=== PATIENT | female | born 1935 | race Caucasian/White ===

== ENCOUNTER 2018-08-01 01:30 | Outpatient (CLI) | payer MEDICARE, BC, SELFPAY ==
[2018-08-01 09:23] LABS: Hemoglobin A1C 8.1 % (4.5-6.2)
[2018-08-01 09:32] LABS: ALT 15 U/L (12-78); AST 21 U/L (15-37); Albumin 3.1 g/dL (3.4-5.0); Alkaline Phosphatase 101 U/L (46-116); BUN 19 mg/dL (7-18); Bilirubin, Total 0.3 mg/dL (0.2-1.0); CREATININE 0.89 mg/dL (0.55-1.02); Calcium 10.7 mg/dL (8.5-10.1); Chloride 103 mmol/L (98-107); Cholesterol 198 mg/dL (50-200); Glucose 198 mg/dL (70-100); HDL Cholesterol 63 mg/dL (40-60); LDL CHOLESTEROL 106 mg/dL (<100); Potassium 4.1 mmol/L (3.5-5.1); Sodium 138 mmol/L (136-145); Total Protein 6.5 g/dL (6.4-8.2); Triglyceride 164 mg/dL (30-150)
== END 2018-08-01 01:50 ==
PROVIDERS: PCP Nurse Practitioner Family; Visit Provider Nurse Practitioner Family
DX: E11.9 Type 2 diabetes mellitus without complications (principal); I10 Essential (primary) hypertension; E78.5 Hyperlipidemia, unspecified
CPT/HCPCS: 36415; 80053; 80061; 83721; 83036

== ENCOUNTER 2019-01-30 01:39 | Outpatient (CLI) | payer MEDICARE, BC, SELFPAY ==
[2019-01-30 10:14] LABS: Hemoglobin A1C 8.2 % (4.5-6.2)
[2019-01-30 10:51] LABS: Anion Gap 7.3 mmol/L (3-11); BUN 17 mg/dL (7-18); CO2 28.7 mmol/L (21.0-32.0); CREATININE 0.77 mg/dL (0.55-1.02); Chloride 105 mmol/L (98-107); Glucose 173 mg/dL (70-100); Potassium 4.6 mmol/L (3.5-5.1); Sodium 141 mmol/L (136-145)
== END 2019-01-30 01:59 ==
PROVIDERS: PCP Nurse Practitioner Family; Visit Provider Nurse Practitioner Family
DX: E11.9 Type 2 diabetes mellitus without complications (principal)
CPT/HCPCS: 36415; 80048; 83036

== ENCOUNTER 2019-07-28 01:48 | Outpatient (CLI) | payer MEDICARE, BC, SELFPAY ==
[2019-07-28 10:40] LABS: ALT 19 U/L (14-59); AST 19 U/L (15-37); Albumin 3.3 g/dL (3.4-5.0); Alkaline Phosphatase 82 U/L (46-116); Anion Gap 8.3 mmol/L (3-11); BUN 20 mg/dL (7-18); Bilirubin, Total 0.4 mg/dL (0.2-1.0); CO2 29.7 mmol/L (21.0-32.0); CREATININE 0.91 mg/dL (0.55-1.02); Calcium 10.5 mg/dL (8.5-10.1); Calculated LDL 104 mg/dL; Chloride 103 mmol/L (98-107); Cholesterol 197 mg/dL (<200); Estimated GFR 59.18 (mL/min/1.73m2); Glucose 176 mg/dL (74-106); HDL Cholesterol 69 mg/dL (40-60); Sodium 141 mmol/L (136-145); Total Protein 6.6 g/dL (6.4-8.2); Triglyceride 124 mg/dL (<150)
== END 2019-07-28 02:08 ==
PROVIDERS: PCP Nurse Practitioner Family; Visit Provider Nurse Practitioner Family
DX: E11.9 Type 2 diabetes mellitus without complications (principal); I10 Essential (primary) hypertension; E78.5 Hyperlipidemia, unspecified
CPT/HCPCS: 36415; 80053; 80061; 83036

== ENCOUNTER 2020-01-26 01:12 | Outpatient (CLI) | payer MEDICARE, BC, SELFPAY ==
[2020-01-26 09:03] LABS: Hemoglobin A1C 7.3 % (3.8-5.6)
[2020-01-26 09:38] LABS: Anion Gap 9.8 mmol/L (3-11); BUN 15 mg/dL (7-18); CO2 26.2 mmol/L (21.0-32.0); CREATININE 0.85 mg/dL (0.55-1.02); Calcium 10.4 mg/dL (8.5-10.1); Chloride 104 mmol/L (98-107); Glucose 178 mg/dL (74-106); Potassium 4.3 mmol/L (3.5-5.1); Sodium 140 mmol/L (136-145)
== END 2020-01-26 01:32 ==
PROVIDERS: PCP Nurse Practitioner Family; Visit Provider Nurse Practitioner Family
DX: E11.9 Type 2 diabetes mellitus without complications (principal); I10 Essential (primary) hypertension
CPT/HCPCS: 36415; 80048; 83036

== ENCOUNTER 2020-07-30 03:18 | Outpatient (CLI) | payer MEDICARE, BC, SELFPAY ==
[2020-07-30 09:43] LABS: ALT 18 U/L (14-59); AST 19 U/L (15-37); Albumin 3.4 g/dL (3.4-5.0); Alkaline Phosphatase 79 U/L (46-116); Anion Gap 6.4 mmol/L (3-11); BUN 18 mg/dL (7-18); Bilirubin, Total 0.3 mg/dL (0.2-1.0); CO2 28.6 mmol/L (21.0-32.0); Calcium 10.6 mg/dL (8.5-10.1); Calculated LDL 93 mg/dL (<100); Chloride 104 mmol/L (98-107); Cholesterol 195 mg/dL (<200); Glucose 171 mg/dL (74-106); HDL Cholesterol 64 mg/dL (40-60); Potassium 4.4 mmol/L (3.5-5.1); Sodium 139 mmol/L (136-145); Total Protein 6.5 g/dL (6.4-8.2); Triglyceride 190 mg/dL (<150)
[2020-08-01 17:35] LABS: TSH (W/Ref FT4) 2.54 uIU/mL (0.36-3.74)
[2020-08-01 18:10] LABS: Vitamin D 25 Total 50.2 ng/ml (30-100)
== END 2020-07-30 03:38 ==
PROVIDERS: PCP Nurse Practitioner Family; Visit Provider Nurse Practitioner Family
DX: E78.5 Hyperlipidemia, unspecified (principal); I10 Essential (primary) hypertension
CPT/HCPCS: 36415; 80053; 80061; 82306; 84443

== ENCOUNTER 2021-01-24 01:46 | Outpatient (CLI) | payer MEDICARE, BC, SELFPAY ==
[2021-01-28 08:54] LABS: Parathyroid Hormone,Intact 121 pg/mL (19-88)
== END 2021-01-24 01:47 | disposition home or self-care (01) ==
PROVIDERS: PCP Nurse Practitioner Family; Visit Provider Nurse Practitioner Family
DX: R79.89 Other specified abnormal findings of blood chemistry (principal); E83.52 Hypercalcemia; E21.3 Hyperparathyroidism, unspecified
CPT/HCPCS: 36415; 80053; 80061; 83036; 83970; 84439; 84443

== ENCOUNTER 2021-01-24 15:23 | Outpatient (REF) | payer MEDICARE, BC, SELFPAY ==
[2021-01-24 14:47] LABS: Hemoglobin A1C 8.7 % (<5.7)
[2021-01-24 15:10] LABS: ALT 24 U/L (14-59); AST 25 U/L (15-37); Albumin 3.4 g/dL (3.4-5.0); Alkaline Phosphatase 77 U/L (46-116); Anion Gap 9.8 mmol/L (3-11); BUN 20 mg/dL (7-18); Bilirubin, Total 0.4 mg/dL (0.2-1.0); CO2 27.2 mmol/L (21.0-32.0); Calcium 10.9 mg/dL (8.5-10.1); Calculated LDL 122 mg/dL (<100); Chloride 102 mmol/L (98-107); Cholesterol 228 mg/dL (<200); Estimated GFR 52.95 (mL/min/1.73m2); Glucose 217 mg/dL (74-106); HDL Cholesterol 73 mg/dL (40-60); Potassium 4.5 mmol/L (3.5-5.1); Sodium 139 mmol/L (136-145); Total Protein 6.7 g/dL (6.4-8.2); Triglyceride 166 mg/dL (<150)
[2021-01-24 15:27] LABS: FREE T4 0.95 ng/dL (0.76-1.46)
== END 2021-01-24 15:24 | disposition home or self-care (01) ==
LOC: NCHCN 15:23
PROVIDERS: PCP Nurse Practitioner Family; Visit Provider Nurse Practitioner Family
DX: E11.9 Type 2 diabetes mellitus without complications (principal); R89.9 Unspecified abnormal finding in specimens from other organs, systems and tissues; I10 Essential (primary) hypertension
CPT/HCPCS: 80053; 80061; 83036; 84439; 84443

== ENCOUNTER 2021-01-30 02:15 | Outpatient (CLI) | payer MEDICARE, BC, SELFPAY ==
--- NOTE | 2021-01-30 | DI.RAD_ITS ---
Exam(s) XR THORACIC SPINE COMPLETE EXAM: XR THORACIC SPINE COMPLETE CLINICAL HISTORY: PAIN. TECHNIQUE: 2D digital imaging was performed. COMPARISON: CR XR CERVICAL SPINE COMP 4-5V from 01/30/2021 CR XR CERVICAL SPINE COMP 4-5V from 01/30/2021 FINDINGS: BONES: There is no fracture or destructive lesion. The vertebral bodies and posterior elements are un remarkable. Bones appear osteoporotic. DISKS:Anterior disc space narrowing causing accentuation of the thoracic kyphosis. There is a mild d extroscoliosis in the thoracic region and levorotoscoliosis in the lumbar region. SOFT TISSUE: Mild fibrotic changes and apical scarring. Aortic calcification. IMPRESSION: Degenerative disc changes and scoliosis. No evidence of fracture. DATA REPOSITORY: RADIATION DOSE DELIVERED:
--- NOTE | 2021-01-30 | DI.RAD_ITS ---
Exam(s) XR CERVICAL SPINE COMP 4-5V EXAM: XR CERVICAL SPINE COMP 4-5V CLINICAL HISTORY: WORSENING NECK PAIN,H/O OSTEOPOROSIS,? FX. TECHNIQUE: 2D digital imaging was performed. COMPARISON: No exams were available for comparison FINDINGS: BONES: No fracture or destructive lesion. Vertebral bodies are unremarkable. Prominent facet joint degenerative changes greater in the upper through mid cervical levels. Left-sided neural foraminal e ncroachment at C3-4. DISKS: Mild disc space narrowing at C3-4 and C4-5. Moderate disc space narrowing at C5-6. ALIGNMENT: Straightening of the normal cervical lordosis. SOFT TISSUE: The lung apices show scarring.. Calcification at the aortic arch and region of the left common carotid bulb. IMPRESSION: Degenerative changes of the discs and facets. Left neural foraminal encroachment at C3-4. DATA REPOSITORY: RADIATION DOSE DELIVERED:
== END 2021-01-30 02:35 ==
PROVIDERS: PCP Nurse Practitioner Family; Visit Provider Nurse Practitioner Family
DX: M47.813 Spondylosis without myelopathy or radiculopathy, cervicothoracic region (principal); M41.84 Other forms of scoliosis, thoracic region
CPT/HCPCS: 72050; 72072

== ENCOUNTER 2021-04-15 01:43 | Outpatient (CLI) | payer MEDICARE, BC, SELFPAY ==
[2021-04-17 11:26] LABS: Parathyroid Hormone,Intact 112 pg/mL (19-88)
== END 2021-04-15 01:44 | disposition home or self-care (01) ==
LOC: LBO 01:43
PROVIDERS: PCP Nurse Practitioner Family; Visit Provider Nurse Practitioner Family
DX: R89.9 Unspecified abnormal finding in specimens from other organs, systems and tissues (principal); E83.52 Hypercalcemia; R79.89 Other specified abnormal findings of blood chemistry
CPT/HCPCS: 36415; 83970

== ENCOUNTER 2021-04-23 09:50 | Outpatient (REF) | payer MEDICARE, BC, SELFPAY ==
[2021-04-23 20:24] LABS: Hemoglobin A1C 7.8 % (<5.7)
[2021-04-23 20:33] LABS: Calcium 10.2 mg/dL (8.5-10.1); Calculated LDL 94 mg/dL (<100); Cholesterol 188 mg/dL (<200); HDL Cholesterol 75 mg/dL (40-60); Triglyceride 95 mg/dL (<150)
== END 2021-04-23 09:51 | disposition home or self-care (01) ==
LOC: NCHCN 09:50
PROVIDERS: PCP Nurse Practitioner Family; Visit Provider Nurse Practitioner Family
DX: E78.5 Hyperlipidemia, unspecified (principal); E11.9 Type 2 diabetes mellitus without complications; R89.9 Unspecified abnormal finding in specimens from other organs, systems and tissues
CPT/HCPCS: 80061; 82310; 83036

== ENCOUNTER 2021-05-28 03:17 | Outpatient (CLI) | payer MEDICARE, BC, SELFPAY ==
[2021-05-28 12:00] LABS: Anion Gap 5.3 mmol/L (3-11); BUN 20 mg/dL (7-18); CO2 31.7 mmol/L (21.0-32.0); CREATININE 0.9 mg/dL (0.55-1.02); Calcium 10.9 mg/dL (8.5-10.1); Chloride 104 mmol/L (98-107); Glucose 181 mg/dL (74-106); Potassium 4.2 mmol/L (3.5-5.1); Sodium 141 mmol/L (136-145)
[2021-05-29 01:41] LABS: Vitamin D 25 Total 46.8 ng/mL (30-100)
== END 2021-05-28 03:18 | disposition home or self-care (01) ==
LOC: LBO 03:17
PROVIDERS: PCP Nurse Practitioner Family; Visit Provider Nurse Practitioner Family
DX: I10 Essential (primary) hypertension (principal); R79.89 Other specified abnormal findings of blood chemistry; E83.52 Hypercalcemia
CPT/HCPCS: 36415; 80048; 82306

== ENCOUNTER 2021-07-11 02:17 | Outpatient (CLI) | payer MEDICARE, BC, SELFPAY ==
--- NOTE | 2021-07-11 10:35 | DI.DEXA_ITS ---
Exam(s) XR DEXA BONE DENSITY W/WO BENY EXAM: XR DEXA BONE DENSITY W/WO BENY CLINICAL HISTORY: OSTEOPOROSIS, M81.0, ELEVATED PARATHYROID HORMONE, R79.89, HYPERCALCEMIA, TECHNIQUE: COMPARISON: Comparison examination is 03/26/2011. FINDINGS: Lateral Spine Image: Unremarkable. No compression deformities identified. Left hip: Total T-Score: -2.7. This compares to -1.6 on the prior examination. Total Z-Score: -0.4. T- and Z-scores: Findings are consistent with osteoporosis. Lumbar Spine: Total T-Score: -3.5. This compares to -3.3 on the prior examination. Total Z-Score: -0.6. T- and Z-scores: Findings are consistent with osteoporosis. IMPRESSION: Osteoporosis in the lumbar spine and left hip.
== END 2021-07-11 02:37 ==
PROVIDERS: PCP Nurse Practitioner Family; Visit Provider Nurse Practitioner Family
DX: M81.0 Age-related osteoporosis without current pathological fracture (principal); R94.6 Abnormal results of thyroid function studies; E83.52 Hypercalcemia
CPT/HCPCS: 77080

== ENCOUNTER 2021-11-03 02:40 | Outpatient (CLI) | payer MEDICARE, BC, SELFPAY ==
[2021-11-03 09:07] LABS: Hemoglobin A1C 7.6 % (<5.7)
[2021-11-03 09:47] LABS: ALT 18 U/L (14-59); AST 23 U/L (15-37); Albumin 1.6 g/dL (3.4-5.0); Alkaline Phosphatase 88 U/L (46-116); Anion Gap 8.2 mmol/L (3-11); BUN 17 mg/dL (7-18); Bilirubin, Total 0.4 mg/dL (0.2-1.0); CO2 30.8 mmol/L (21.0-32.0); CREATININE 0.8 mg/dL (0.55-1.02); Calcium 10.2 mg/dL (8.5-10.1); Calculated LDL 104 mg/dL (<100); Chloride 102 mmol/L (98-107); Cholesterol 211 mg/dL (<200); Glucose 176 mg/dL (74-106); HDL Cholesterol 82 mg/dL (40-60); Potassium 4.1 mmol/L (3.5-5.1); Sodium 141 mmol/L (136-145); Total Protein 6.7 g/dL (6.4-8.2); Triglyceride 126 mg/dL (<150)
[2021-11-03 10:07] LABS: Vitamin D 25 Total 55.1 ng/mL (30-100)
[2021-11-04 10:18] LABS: Parathyroid Hormone,Intact 118 pg/mL (19-88)
== END 2021-11-03 02:41 | disposition home or self-care (01) ==
LOC: LBO 02:40
PROVIDERS: PCP Nurse Practitioner Family; Visit Provider Nurse Practitioner Family
DX: I10 Essential (primary) hypertension (principal); E11.9 Type 2 diabetes mellitus without complications; E78.5 Hyperlipidemia, unspecified; R79.89 Other specified abnormal findings of blood chemistry; E83.52 Hypercalcemia
CPT/HCPCS: 36415; 80053; 80061; 82306; 83036; 83970

== ENCOUNTER 2022-04-30 02:22 | Outpatient (CLI) | payer MEDICARE, BC, SELFPAY ==
[2022-04-30 08:44] LABS: Hemoglobin A1C 8.4 % (<5.7)
[2022-04-30 08:48] LABS: ALT 16 U/L (14-59); AST 19 U/L (15-37); Albumin 3.3 g/dL (3.4-5.0); Alkaline Phosphatase 79 U/L (46-116); Anion Gap 6.6 mmol/L (3-11); BUN 20 mg/dL (7-18); Bilirubin, Total 0.3 mg/dL (0.2-1.0); CO2 29.4 mmol/L (21.0-32.0); CREATININE 0.9 mg/dL (0.55-1.02); Calcium 10.6 mg/dL (8.5-10.1); Calculated LDL 84 mg/dL (<100); Chloride 103 mmol/L (98-107); Cholesterol 191 mg/dL (<200); Estimated GFR 63.04 (mL/min/1.73m2); Glucose 165 mg/dL (74-106); HDL Cholesterol 71 mg/dL (40-60); Sodium 139 mmol/L (136-145); Triglyceride 180 mg/dL (<150)
[2022-05-01 09:56] LABS: Parathyroid Hormone,Intact 93 pg/mL (19-88)
== END 2022-04-30 02:23 | disposition home or self-care (01) ==
LOC: LBO 02:23
PROVIDERS: PCP Nurse Practitioner Family; Visit Provider Nurse Practitioner Family
DX: R79.89 Other specified abnormal findings of blood chemistry (principal); E11.9 Type 2 diabetes mellitus without complications; I10 Essential (primary) hypertension; E78.5 Hyperlipidemia, unspecified
CPT/HCPCS: 36415; 80053; 80061; 83036; 83970

== ENCOUNTER 2022-06-10 16:13 | Emergency (ER) | payer MEDICARE, BC, SELFPAY ==
[2022-06-10] VITALS (26 sets, daily range): BP systolic 98–186; BP diastolic 62–103; PULSE 81–114; RESP 14–25; TEMP 36.6; O2SAT 94–100
--- NOTE | 2022-06-10 16:15 | RT.EKG_ITS ---
APPROVED REPORT Exam: Resting ECG Reason for Exam: chest pain Patient Location: E HR:102 bpm ECG Measurements Heart Rate 102 AXIS SC 174 P 63 QRSd 78 QRS 20 QT 338 T 30 QTc 441 Conclusion Sinus tachycardia...rate> 99 Probable left atrial enlargement...P >50mS, <-0.10mV V1
--- NOTE | 2022-06-10 16:45 | DI.RAD_ITS ---
Exam(s) XR SOFT TISSUE NECK EXAM: XR SOFT TISSUE NECK CLINICAL HISTORY: Difficulty swallowing TECHNIQUE: COMPARISON: CR XR CERVICAL SPINE COMP 4-5V from 01/30/2021 FINDINGS: Two views were obtained. No retro pharyngeal soft tissue abnormality. Tracheal laryngeal contours a ppear unremarkable as visualized. IMPRESSION: Negative soft tissue neck . RADIATION DOSE DELIVERED: Total DLP
--- NOTE | 2022-06-10 16:45 | DI.RAD_ITS ---
Exam(s) XR CHEST 2V PA LATERAL EXAM: XR CHEST 2V PA LATERAL CLINICAL HISTORY: Difficulty swallowing TECHNIQUE: COMPARISON: No exams were available for comparison FINDINGS: The heart is not enlarged. There is retrocardiac hiatus hernia. The lungs are predominantly clear w ith some changes of scarring and presumed COPD. No pleural effusion seen. No mediastinal contour ab normality. IMPRESSION: No evidence of acute process. RADIATION DOSE DELIVERED: Total DLP
--- NOTE | 2022-06-10 16:55 | ED.GENADUL_ITS ---
Discharge Plan Disposition Patient Disposition: Home Condition: Improving Discharge Details Clinical Impression: Difficulty swallowing Primary Care Provider: Ruth Fay ED Provider: Aldo Moran Home Meds and New Rx's Prescriptions: Continued lisinopril 20 MG tablet 30 mg PO DAILY glipizide [Glucotrol XL] 5 MG tablet extended release 24hr 5 mg PO BID raloxifene [Evista] 60 MG tablet 60 mg PO DAILY zinc 50 MG tablet 50 mg PO DAILY multivitamin 1 EACH capsule 1 ea PO DAILY metformin [Glucophage XR] 500 MG tablet extended release 24 hr 500 mg PO BID hydrochlorothiazide 12.5 MG tablet 12.5 mg PO DAILY flaxseed 1,000 MG capsule 1,300 mg PO BID calcium carbonate-vitamin D3 500 mg-3.125 mcg (125 unit) Tablet 1 tab PO DAILY omega-3 fatty acids Capsule 1 cap PO DAILY Discharge Instructions Additional Instructions: At this time you have chosen to decline any further medications, labs, or CT imaging. It is reassuring that your swallowing has improved but if you have any further difficulty swallowing, difficulty breathing, or change in your condition you should immediately return to the emergency department. Otherwise please follow-up with your primary care provider for further reassessment and testing/treatment as needed. Referrals: Ruth Fay [Primary Care Provider] - 1 week Discharge Data Discharge Date/Time-TO BE ENTERED AT DEPARTURE: 06/10/22 19:20 Medical Decision Making Patient presenting to the emergency department for chief complaint of heartburn/difficulty swallowing. Patient states that she has these episodes multiple times a year and this morning while having her breakfast she started having some tightness in her throat with heartburn a type feelings. She has had difficulty time swallowing throughout the course of the day finally coming into the emergency department. Patient denies any chest pain, epigastric pain, difficulty breathing swallowing or other symptoms. Physical exam is unremarkable for any acute findings, patient is phonating well, she is spitting up her saliva but shows no signs of foreign body obstruction. We will plan on checking labs and performing EKG just for atypical TX given that patient was stating some heartburn but also consider soft tissue mass or obstruction of esophagus given that airway is fully intact. Will give Maalox with lidocaine to see if this helps. Please see physician interpretation for full interpretation of EKG that shows sinus rhythm with noted tachycardia otherwise no findings to suggest acute ischemic event Reviewed labs and CBC is unremarkable, negative troponin, CMP shows slightly elevated anion gap, glucose is 168, calcium 10.7. Although the labs are unremarkable. Patient does state history of parathyroidism and that her calcium numbers have been monitored by her primary care provider. Patient refused the lidocaine but was able to swallow the Maalox but still having some difficulty sw allowing but again still phonating and breathing well. Will review x-ray imaging of chest and soft tissue neck to see if there are any acute findings. We will continue to monitor Review of x-ray imaging shows no acute findings. Reassessed patient and patient continuing to have difficulty but denying pain or discomfort. Will order CT imaging and consider benzo to see if this will help. Patient refused further medication and did not take initial dose of lidocaine. She did drink some water which she stated improved her symptoms. She states she has no longer having any difficulty with swallowing and is refusing all other treatment and imaging. Did discuss with patient concern for multiple episodes of this occurrence and difficulty managing secretions. She stated that given that this is happened in the past and had now full resolution today that she feels comfortable going home and states understanding that if she does have a potential finding that this could delay further treatment or referral to specialist if needed. Patient is alert and oriented x4 and competent to make her own healthcare decisions. Will discharge patient with recommendation to follow-up with primary care provider for further reassessment of labs and imaging as needed such as potential swallow study. After discussion of diagnosis and plan of care patient has no further needs, questions, or concerns and states clear understanding to return to the emergency department for any worsening symptoms. This documentation was generated using [email or web address] dictation system, please disregard any oddities of phrase or misspellings. Sign Out No HPI General Mode of arrival: ambulatory . Date/Time Provider Initiated Documentation: 06/10/22 16:15 . Limitations to Documentation: no limitations . Information obtained by: patient and RN notes reviewed . History of Present Illness 86 year old F presents to the emergency department with the chief complaint of Heartburn and difficulty swallowing, described as moderate and similar to prior episodes, Quality is described as other (Denies pain or discomfort), Patient started experiencing this hour(s) (8) and it has been constant. No relieving factors improve symptom(s), Eating worsens symptoms . Patient notes no other symptoms.. Patient did receive the following treatments prior to arrival, other (Zdor-zmf-isogils antacids) Related Data Home Medications Medication Instructions Recorded Confirmed flaxseed 1,000 mg capsule 1,300 mg PO BID 10/04/15 06/10/22 glipizide 5 mg tablet, extended 5 mg PO BID 10/04/15 06/10/22 release 24 hr (Glucotrol XL) hydrochlorothiazide 12.5 mg tablet 12.5 mg PO DAILY 10/04/15 06/10/22 lisinopril 20 mg tablet 30 mg PO DAILY 10/04/15 06/10/22 metformin 500 mg tablet,extended 500 mg PO BID 10/04/15 06/10/22 release 24 hr (Glucophage XR) multivitamin 1 ea PO DAILY 10/04/15 06/10/22 raloxifene 60 mg tablet (Evista) 60 mg PO DAILY 10/04/15 06/10/22 zinc 50 mg tablet 50 mg PO DAILY 10/04/15 06/10/22 calcium carbonate 500 mg-vitamin 1 tab PO DAILY 06/10/22 06/10/22 D3 3.125 mcg (125 unit) tablet omega-3 fatty acids 1 cap PO DAILY 06/10/22 06/10/22 Allergies Allergy/AdvReac Type Severity Reaction Status Date / Time adhesive Allergy Mild Itching Unverified 06/10/22 16:27 latex Allergy Itching Unverified 06/10/22 16:27 nickel Allergy Skin Rash Unverified 06/10/22 16:27 General Stated Complaint: GenMedical BERT: 2 Review of Systems Constitutional Constitutional: Denies chills, Denies fever(s) and Denies malaise ENT Ears, Nose, Mouth, and Throat: Reports dysphagia Cardiovascular Cardiovascular: Reports as per HPI, Denies chest pain, Denies chest pain with activity, Denies syncope, Denies irregular heart rhythm, Denies palpitations and Denies dyspnea Respiratory Respiratory: Denies cough, Denies hemoptysis and Denies dyspnea Gastrointestinal Gastrointestinal: Denies abdominal pain, Reports dysphagia, Reports heartburn, Denies nausea and Denies vomiting Neurologic Neurologic: Denies syncope Psychiatric Psychiatric: Denies anxiety Endocrine Endocrine: Denies cold intolerance, Denies heat intolerance and Denies palpitations PFSH All Active Problems (Updated 06/10/22 @ 19:08 by Aldo Moran NP) Difficulty swallowing (Acute) 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) Social History Smoking/Tobacco Use Status: Former Tobacco Use Quit Date: 07/26/98 Smoking risk assessment performed?: Yes Alcohol Intake: never Drug use: Never Substance use type: does not use Do you feel safe at home: Yes Do you feel safe in your relationship?: Yes Exam Const General: cooperative, healthy appearing, comfortable, no acute distress, not francesca phoretic and not ill appearing Nutritional Appearance: average body habitus Orientation: alert, awake and oriented x3 Limitations: mental status not altered Neck Neck: normal visual inspection, full ROM, trachea midline, supple and no anterior neck swelling Carotids: normal carotid upstroke and no bruits Chest Chest: normal inspection of the chest Resp Effort & Inspection: normal respiratory effort and able to speak in complete sentences Auscultation: clear to auscultation bilaterally Cardio Jugular venous pressure: no JVD Palpation: normal PMI Rate: regular rate Rhythm: regular rhythm Heart Sounds: S1 normal, S2 normal, no click, no gallops, no murmurs and no rubs Bruits: no abdominal aortic bruits and no carotid bruits Pulses: radial pulses present bilaterally 2+ GI Inspection: normal to inspection Palpation: soft, no aortic enlargement, no pulsatile masses and nontender Auscultation: normal bowel sounds Skin General skin exam: no rashes or lesions noted Neuro General: patient alert, patient awake, patient oriented x3, tone normal and moves all extremities Course Vital Signs Vital signs: Vital Signs Temperature 36.6 C 06/10/22 16:19 Pulse 114 H 06/10/22 16:19 Respiratory Rate 18 06/10/22 16:19 Blood Pressure 153/103 H 06/10/22 16:19 Pulse Oximetry 98 06/10/22 16:19 Temperature 36.6 C 06/10/22 16:19 Temperature Source Skin 06/10/22 16:19 Pulse 114 H 06/10/22 16:19 Respiratory Rate 18 06/10/22 16:19 Blood Pressure 153/103 H 06/10/22 16:19 Blood Pressure Position Supine 06/10/22 16:19 Pulse Oximetry 98 06/10/22 16:19 Oxygen Delivery Method Room Air 06/10/22 16:19 Oxygen Flow Rate 0 06/10/22 16:19 Pain Level 0 06/10/22 16:19
[2022-06-10 17:02] LABS: Abs Immature Grans 0.02 10^3/uL (0.0-0.06); Absolute Basophil Count 0.04 10^3/uL (0.0-0.2); Absolute Eosinophil Count 0.04 10^3/uL (0.0-0.7); Absolute Lymphocyte Count 2.11 10^3/uL (1.2-3.4); Absolute Monocyte Count 0.54 10^3/uL (0.1-0.8); Absolute Neutrophil Count 7.74 10^3/uL (1.2-6.7); Basophils % 0.4; Eosinophils % 0.4; HCT 42.7 % (36.0-46.0); HGB 13.9 g/dL (11.2-15.7); Immature Grans % 0.2; Lymphocytes % 20.1; MCH 30.5 pg (27.0-33.0); MCHC 32.6 % (32.0-36.0); MCV 94 fL (80-95); MPV 9.5 fL (8.0-11.0); Monocytes % 5.1; Neutrophils % 73.8; Platelet Count 262 10^3/uL (130-400); RBC 4.55 10^6/uL (3.93-5.22); RDW 13.7 % (11.7-14.6); RDW-SD 47.6 fL; WBC 10.49 10^3/uL (4.4-10.8)
[2022-06-10] MEDS: Normal Saline 500 ML IV (17:02)
[2022-06-10 17:20] LABS: ALT 14 U/L (14-59); AST 24 U/L (15-37); Albumin 3.7 g/dL (3.4-5.0); Alkaline Phosphatase 77 U/L (46-116); Anion Gap 11.8 mmol/L (3-11); BUN 18 mg/dL (7-18); Bilirubin, Total 0.4 mg/dL (0.2-1.0); CO2 27.2 mmol/L (21.0-32.0); Calcium 10.7 mg/dL (8.5-10.1); Chloride 104 mmol/L (98-107); Estimated GFR 55.55 (mL/min/1.73m2); Glucose 168 mg/dL (74-106); Magnesium 1.9 mg/dL (1.8-2.4); Sodium 143 mmol/L (136-145); Total Protein 7.6 g/dL (6.4-8.2); Troponin I < 50 ng/L (<or=60)
--- NOTE | 2022-06-10 18:04 | DI.VRAD_ITS ---
PROCEDURE INFORMATION: Exam: XR Soft Tissue Neck Exam date and time: 06/10/2022 17:29 Age: 86 years old Clinical indication: Other: Difficulty swallowing TECHNIQUE: Imaging protocol: Radiologic exam of the soft tissues of the neck. COMPARISON: CR XR CERVICAL SPINE COMP 4-5V 01/30/2021 09:37 FINDINGS: Airway: Normal. No abnormal narrowing. Soft tissues: No significant prevertebral swelling. Normal epiglottis. Bones/joints: Thoracic dextroscoliosis partially seen. The bones are demineralized. Mid cervical degenerative changes. No displaced fracture. IMPRESSION: No acute findings. Dictated and Authenticated by: Jami Mirza MD. Ordering:SACHA Carlson MD
--- NOTE | 2022-06-10 18:05 | DI.VRAD_ITS ---
PROCEDURE INFORMATION: Exam: XR Chest Exam date and time: 06/10/2022 17:28 Age: 86 years old Clinical indication: Other: Difficulty swallowing TECHNIQUE: Imaging protocol: Radiologic exam of the chest. Views: 2 views. COMPARISON: CR XR THORACIC SPINE COMPLETE 01/30/2021 09:46 FINDINGS: Lungs: Emphysema without airspace consolidation. Pleural spaces: No pleural effusion. No pneumothorax. Heart/Mediastinum: No cardiomegaly. Bones/joints: Mild S shaped scoliosis upper to the right. No displaced fracture. The bones are demineralized. IMPRESSION: Emphysema without airspace consolidation. Dictated and Authenticated by: Jami Mirza MD. Ordering:SACHA Carlson MD
--- NOTE | 2022-06-10 18:59 | NUR.NOTE ---
pt sipping on water without difficulty Nursing Note:
== END 2022-06-10 19:20 | disposition home or self-care (01) ==
PROVIDERS: Emergency Provider Nurse Practitioner Family; PCP Nurse Practitioner Family
DX: R13.10 Dysphagia, unspecified (principal); R00.0 Tachycardia, unspecified
CPT/HCPCS: 36415; 80053; 93005; 96360; 99284; 70360; 71046; 83735; 84484; 85025; 93010

== ENCOUNTER 2022-11-03 01:55 | Outpatient (CLI) | payer MEDICARE, BC, SELFPAY ==
[2022-11-03 08:06] LABS: Hemoglobin A1C 7.6 % (<5.7)
[2022-11-03 08:31] LABS: ALT 17 U/L (14-59); AST 19 U/L (15-37); Albumin 3.1 g/dL (3.4-5.0); Alkaline Phosphatase 72 U/L (46-116); Anion Gap 6.1 mmol/L (3-11); BUN 17 mg/dL (7-18); Bilirubin, Total 0.3 mg/dL (0.2-1.0); CO2 29.9 mmol/L (21.0-32.0); Calcium 10.5 mg/dL (8.5-10.1); Calculated LDL 99 mg/dL (<100); Chloride 103 mmol/L (98-107); Cholesterol 199 mg/dL (<200); Estimated GFR 55.21 (mL/min/1.73m2); Glucose 174 mg/dL (74-106); HDL Cholesterol 73 mg/dL (40-60); Potassium 3.8 mmol/L (3.5-5.1); Sodium 139 mmol/L (136-145); Total Protein 6.9 g/dL (6.4-8.2); Triglyceride 139 mg/dL (<150)
[2022-11-03 19:20] LABS: Parathyroid Hormone,Intact 70 pg/mL (19-88)
== END 2022-11-03 01:56 | disposition home or self-care (01) ==
LOC: LBO 01:56
PROVIDERS: PCP Nurse Practitioner Family; Visit Provider Nurse Practitioner Family
DX: E11.9 Type 2 diabetes mellitus without complications (principal); E78.5 Hyperlipidemia, unspecified; I10 Essential (primary) hypertension; E83.52 Hypercalcemia; R79.89 Other specified abnormal findings of blood chemistry
CPT/HCPCS: 36415; 80053; 80061; 83036; 83970

== ENCOUNTER 2023-04-28 03:31 | Outpatient (CLI) | payer MEDICARE, BC, SELFPAY ==
[2023-04-28 08:49] LABS: ALT 19 U/L (14-59); AST 22 U/L (15-37); Albumin 3.2 g/dL (3.4-5.0); Alkaline Phosphatase 82 U/L (46-116); Anion Gap 5.7 mmol/L (3-11); BUN 19 mg/dL (7-18); Bilirubin, Total 0.3 mg/dL (0.2-1.0); CO2 28.3 mmol/L (21.0-32.0); CREATININE 0.9 mg/dL (0.55-1.02); Calcium 10.4 mg/dL (8.5-10.1); Calculated LDL 97 mg/dL (<100); Chloride 103 mmol/L (98-107); Cholesterol 192 mg/dL (<200); Estimated GFR 62.65 (mL/min/1.73m2); Glucose 168 mg/dL (74-106); HDL Cholesterol 78 mg/dL (40-60); Sodium 137 mmol/L (136-145); Triglyceride 88 mg/dL (<150)
[2023-04-28 08:55] LABS: Hemoglobin A1C 7.2 % (<5.7)
[2023-04-28 18:20] LABS: Parathyroid Hormone,Intact 103 pg/mL (19-88)
== END 2023-04-28 03:32 | disposition home or self-care (01) ==
LOC: LBO 03:32
PROVIDERS: PCP Nurse Practitioner Family; Visit Provider Nurse Practitioner Family
DX: E78.5 Hyperlipidemia, unspecified (principal); E11.9 Type 2 diabetes mellitus without complications
CPT/HCPCS: 36415; 80053; 80061; 83036; 83970

== ENCOUNTER 2023-10-27 05:08 | Outpatient (CLI) | payer MEDICARE, BC, SELFPAY ==
[2023-10-27 10:03] LABS: ALT 16 U/L (14-59); AST 18 U/L (15-37); Albumin 3.4 g/dL (3.4-5.0); Alkaline Phosphatase 88 U/L (46-116); Anion Gap 11.1 mmol/L (3-11); BUN 20 mg/dL (7-18); Bilirubin, Total 0.3 mg/dL (0.2-1.0); CO2 27.9 mmol/L (21.0-32.0); CREATININE 0.8 mg/dL (0.55-1.02); Calcium 10.9 mg/dL (8.5-10.1); Calculated LDL 92 mg/dL (<100); Chloride 105 mmol/L (98-107); Cholesterol 195 mg/dL (<200); Estimated GFR 71.71 (mL/min/1.73m2); Glucose 477 mg/dL (74-106); HDL Cholesterol 79 mg/dL (40-60); Sodium 144 mmol/L (136-145); Total Protein 7.2 g/dL (6.4-8.2); Triglyceride 120 mg/dL (<150)
[2023-10-27 11:14] LABS: Hemoglobin A1C 8.1 % (<5.7)
[2023-10-27 18:18] LABS: Parathyroid Hormone,Intact 96 pg/mL (19-88)
== END 2023-10-27 05:09 | disposition home or self-care (01) ==
LOC: LBO 05:08
PROVIDERS: PCP Nurse Practitioner Family; Visit Provider Nurse Practitioner Family
DX: E11.9 Type 2 diabetes mellitus without complications (principal)
CPT/HCPCS: 36415; 80053; 80061; 83036; 83970

== ENCOUNTER 2024-05-02 03:11 | Outpatient (CLI) | payer MEDICARE, BC, SELFPAY ==
[2024-05-02 08:39] LABS: Hemoglobin A1C 7.5 % (<5.7)
[2024-05-02 08:54] LABS: ALT 13 U/L (14-59); AST 19 U/L (15-37); Albumin 3.3 g/dL (3.4-5.0); Alkaline Phosphatase 71 U/L (46-116); Anion Gap 8.6 mmol/L (3-11); BUN 21 mg/dL (7-18); Bilirubin, Total 0.36 mg/dL (0.2-1.0); CO2 28.4 mmol/L (21.0-32.0); CREATININE 0.9 mg/dL (0.55-1.02); Calcium 10.5 mg/dL (8.5-10.1); Calculated LDL 74 mg/dL (<100); Chloride 105 mmol/L (98-107); Cholesterol 165 mg/dL (<200); Estimated GFR 62.26 (mL/min/1.73m2); Glucose 169 mg/dL (74-106); HDL Cholesterol 74 mg/dL (40-60); Potassium 3.8 mmol/L (3.5-5.1); Sodium 142 mmol/L (136-145); Total Protein 6.9 g/dL (6.4-8.2); Triglyceride 87 mg/dL (<150)
[2024-05-02 22:10] LABS: Parathyroid Hormone,Intact 107 pg/mL (19-88)
[2024-05-03 14:25] LABS: Vitamin D 25 Total 69.2 ng/mL (30-100)
[2024-05-03 14:55] LABS: Lab Add On Test DONE
== END 2024-05-02 03:12 | disposition home or self-care (01) ==
LOC: LBO 03:11
PROVIDERS: PCP Nurse Practitioner Family; Referring Provider Nurse Practitioner Family; Visit Provider Nurse Practitioner Family
DX: I10 Essential (primary) hypertension (principal); M81.0 Age-related osteoporosis without current pathological fracture; E11.9 Type 2 diabetes mellitus without complications
CPT/HCPCS: 36415; 80053; 80061; 82306; 83036; 83970

== ENCOUNTER 2024-05-25 02:20 | Outpatient (CLI) | payer MEDICARE, BC, SELFPAY ==
--- NOTE | 2024-05-25 07:12 | DI.DEXA_ITS ---
Exam(s) XR DEXA BONE DENSITY W/WO BENY EXAM: XR DEXA BONE DENSITY W/WO BENY CLINICAL HISTORY: osteoporosis,M81.0 TECHNIQUE: Routine DEXA evaluation of the lumbar spine, hip, or forearm. COMPARISON: CR XR DEXA BONE DENSITY W/WO BENY from 07/11/2021 FINDINGS: Performed on a Hologic unit. Lateral image: Mild wedging of L1 vertebral body noted, unchanged from 07/11/2021. Lumbar Spine total T-score:-3.7 which is again in the osteoporosis range. Prior reading in June 26 was -3.5. Hip total T-score:-2.7. This is identical reading to June 2021 Independent reading at the level of the femoral neck yields T-score of -2.9. The prior reading at th e femoral neck in June 2021 was -3.1. Forearm total T-score: -5.5. Prior reading in 2020 was -4.2 IMPRESSION: Bone mineral density measures in the osteoporosis range. Fracture risk is high Note: Any spine fracture indicates 5x risk for subsequent spine fracture and 2x risk for subsequent h ip fracture. World Health Organization criteria for BMD interpretation classify patients: Normal...... T- Score at or above -1.0 Osteopenic... T- Score between -1.0 and -2.5 Osteoporosis... T-Score at or below -2.5
== END 2024-05-25 02:40 ==
LOC: DI 02:20
PROVIDERS: PCP Nurse Practitioner Family; Visit Provider Nurse Practitioner Family
DX: Z13.820 Encounter for screening for osteoporosis (principal); M81.0 Age-related osteoporosis without current pathological fracture
CPT/HCPCS: 77080

== ENCOUNTER 2024-10-26 03:24 | Outpatient (CLI) | payer MEDICARE, BC, SELFPAY ==
[2024-10-26 10:24] LABS: Hemoglobin A1C 7.9 % (<5.7)
[2024-10-26 11:02] LABS: ALT 19 U/L (14-59); AST 21 U/L (15-37); Albumin 3.6 g/dL (3.4-5.0); Alkaline Phosphatase 107 U/L (46-116); Anion Gap 6.7 mmol/L (3-11); BUN 22 mg/dL (7-18); Bilirubin, Total 0.3 mg/dL (0.2-1.0); CO2 31.3 mmol/L (21.0-32.0); Calculated LDL 99 mg/dL (<100); Chloride 103 mmol/L (98-107); Cholesterol 212 mg/dL (<200); Estimated GFR 54.53 (mL/min/1.73m2); Glucose 199 mg/dL (74-106); HDL Cholesterol 90 mg/dL (>or=50); Sodium 141 mmol/L (136-145); TSH (W/Ref FT4) 2.53 uIU/mL (0.36-3.74); Total Protein 7.3 g/dL (6.4-8.2); Triglyceride 115 mg/dL (<150); Vitamin D 25 Total 58 ng/mL (30-100)
[2024-10-26 11:08] LABS: Calcium 11.6 mg/dL (8.5-10.1)
[2024-10-26 18:51] LABS: Parathyroid Hormone,Intact 97.2 pg/mL (19.0-88.0)
== END 2024-10-26 03:25 | disposition home or self-care (01) ==
PROVIDERS: PCP Nurse Practitioner Family; Visit Provider Nurse Practitioner Family
DX: E78.5 Hyperlipidemia, unspecified (principal); E11.9 Type 2 diabetes mellitus without complications; M81.0 Age-related osteoporosis without current pathological fracture
CPT/HCPCS: 36415; 80053; 80061; 82306; 83036; 83970; 84443

== ENCOUNTER 2024-12-08 02:10 | Outpatient (CLI) | payer MEDICARE, BC, SELFPAY ==
[2024-12-08 09:43] LABS: Abs Immature Grans 0.03 10^3/uL (0.0-0.06); Absolute Basophil Count 0.05 10^3/uL (0.0-0.2); Absolute Eosinophil Count 0.48 10^3/uL (0.0-0.7); Absolute Lymphocyte Count 1.77 10^3/uL (1.2-3.4); Absolute Monocyte Count 0.79 10^3/uL (0.1-0.8); Absolute Neutrophil Count 6.71 10^3/uL (1.2-6.7); Basophils % 0.5 %; Eosinophils % 4.9 %; HCT 38.7 % (36.0-46.0); HGB 12.3 g/dL (11.2-15.7); Immature Grans % 0.3 %; MCH 29.5 pg (27.0-33.0); MCHC 31.8 % (32.0-36.0); MCV 93 fL (80-95); MPV 9.1 fL (8.0-11.0); Neutrophils % 68.3 %; Platelet Count 301 10^3/uL (130-400); RBC 4.17 10^6/uL (3.93-5.22); RDW-SD 47.8 fL; WBC 9.83 10^3/uL (4.4-10.8)
[2024-12-08 10:00] LABS: ALT 18 U/L (14-59); AST 17 U/L (15-37); Albumin 3.2 g/dL (3.4-5.0); Alkaline Phosphatase 109 U/L (46-116); Anion Gap 6.3 mmol/L (3-11); BUN 19 mg/dL (7-18); Bilirubin, Total 0.5 mg/dL (0.2-1.0); CO2 30.7 mmol/L (21.0-32.0); CREATININE 1.1 mg/dL (0.55-1.02); Chloride 101 mmol/L (98-107); Estimated GFR 48.63 (mL/min/1.73m2); Glucose 267 mg/dL (74-106); Potassium 3.9 mmol/L (3.5-5.1); Sodium 138 mmol/L (136-145); Total Protein 6.9 g/dL (6.4-8.2)
[2024-12-08 10:08] LABS: FREE T4 1.16 ng/dL (0.76-1.46); LDH 143 U/L (81-234); TSH 2.38 uIU/mL (0.36-3.74)
[2024-12-08 10:15] LABS: Calcium 11.9 mg/dL (8.5-10.1)
== END 2024-12-08 02:11 | disposition home or self-care (01) ==
PROVIDERS: PCP Nurse Practitioner Family; Visit Provider Nurse Practitioner
DX: Z79.899 Other long term (current) drug therapy (principal); C44.92 Squamous cell carcinoma of skin, unspecified
CPT/HCPCS: 36415; 80053; 83615; 84439; 84443; 85025

== ENCOUNTER → 2024-12-27 13:52 | Outpatient (BNVA) | payer MEDICARE, BC, SELFPAY | PROVIDERS: PCP Nurse Practitioner Family; Referring Provider Nurse Practitioner Family; Visit Provider Physical Therapy Assistant | DX: L08.89 Other specified local infections of the skin and subcutaneous tissue (principal) | CPT/HCPCS: 99203 ==